=== PATIENT | male | born 1965 | race Caucasian/White ===

== ENCOUNTER 2018-09-16 13:05 | Emergency (ER) | payer BC ==
[2018-09-16] MEDS ORDERED: Adacel (T-DAP) 0.5 ML SYRINGE ONE (13:47)
== END 2018-09-16 14:20 | disposition home or self-care (01) ==
LOC: ERS 13:05
DX: T63.061A Toxic effect of venom of other North and South American snake, accidental (unintentional), initial encounter (principal); E78.5 Hyperlipidemia, unspecified; I10 Essential (primary) hypertension; F17.220 Nicotine dependence, chewing tobacco, uncomplicated
CPT/HCPCS: 90471; 90715